=== PATIENT | male | born 1990 | race Caucasian/White ===

== ENCOUNTER 2019-10-12 16:32 | Outpatient (CLI) | payer OTHER, SELFPAY ==
--- NOTE | ~2019-10-12 | XR_ITS ---
XR lumbar spine 2-3V 10/12/2019 16:21 Indication: Low back pain. Procedure: 3 views lumbar spine Comparison: No prior studies for comparison. Findings: Vertebral body heights are maintained. No significant disc narrowing. No fracture or trauma tic malalignment. No evidence for spondylolisthesis. Pedicles intact. Sacral foramen are symmetric. Impression: 1: No significant abnormality of the lumbar spine. Reviewed, dictated and finalized at location A. Impression: 1: No significant abnormality of the lumbar spine.
--- NOTE | ~2019-10-12 | XR_ITS ---
XR thoracic spine 2V 10/12/2019 16:21 Indication: Back pain Procedure: 3 views thoracic spine Comparison: No prior studies for comparison. Findings: No fracture or traumatic malalignment. No paraspinal soft tissue abnormality. Pedicles inta ct. Surrounding osseous structures within normal limits. Impression: 1: No significant abnormality of the thoracic spine. Reviewed, dictated and finalized at location A. Impression: 1: No significant abnormality of the thoracic spine.
[2019-10-12 17:11] LABS: Alanine Aminotransferase 27 U/L (4-50); Albumin Level 4.3 g/dL (3.5-5.1); Alkaline Phosphatase 56 U/L (38-126); Aspartate Amino Transferase 22 U/L (17-59); Bilirubin,Total 0.2 mg/dL (0.2-1.3)
[2019-10-12 17:41] LABS: Thyroid Stimulating Hormone 0.775 uIU/mL (0.465-4.680)
== END 2019-10-12 16:33 | disposition home or self-care (01) ==
PROVIDERS: PCP Internal Medicine; Visit Provider Internal Medicine
DX: R74.0 Nonspecific elevation of levels of transaminase and lactic acid dehydrogenase [LDH] (principal); G89.29 Other chronic pain; M54.9 Dorsalgia, unspecified
CPT/HCPCS: 36415; 72070; 72100; 80076; 84443

== ENCOUNTER 2019-12-25 09:16 | Emergency (ER) | payer OTHER, SELFPAY ==
[2019-12-25 09:28] VITALS: BP 131/61; PULSE 73; RESP 14; TEMP 36.6; O2SAT 100
--- NOTE | 2019-12-25 10:37 | ED.ABDPAIN ---
HPI - Abdominal Pain General Chief Complaint: Abdominal Pain Stated Complaint: lower abdo pain Time Seen by Provider: 12/25/19 10:14 Source: patient and RN notes reviewed Mode of arrival: ambulatory Limitations: no limitations History of Present Illness HPI narrative: Patient presents today complaining of 3-day history of left lower quadrant abdominal pain that has been worsening since onset. Denies fever, nausea, vomiting, diarrhea. Denies any urinary symptoms. Denies radiation of the pain. Bowel movements have been normal. Eating and drinking normally. Currently rates his pain 8/10 and has been taking Tylenol without relief. Pain does increase with movement. No history of abdominal surgeries. No history of diverticulitis or diverticulosis. No history of kidney stones. MD elicited complaint: abdominal pain Related Data Allergies Allergy/AdvReac Type Severity Reaction Status Date / Time No Known Allergies Allergy Verified 12/25/19 09:52 Review of Systems Review of Systems: Narrative: CONSTITUTIONAL: Denies body aches, fever, chills, or sweats. EYES: Denies visual changes, redness, or discharge. ENT: Denies rhinorrhea, congestion, sore throat, or otalgia. CARDIOVASCULAR: Denies chest pain, palpitations, or edema. RESPIRATORY: Denies cough or dyspnea. GASTROINTESTINAL: Denies nausea, vomiting, or diarrhea. + Left lower quadrant abdominal pain GENITOURINARY: Denies dysuria or hematuria. SKIN: Denies rash, itching, or wounds. MUSCULOSKELETAL: Denies back pain, joint pain, or myalgia. NEUROLOGIC: Denies headache, numbness, tingling, or weakness. PSYCH: Denies depression or anxiety. FORMERLY [facility] Past Medical History Medical History (Updated 12/25/19 @ 10:44 by Teresita Dooley, [facility], ) Back spasm Depression Surgical History Surgical History (Updated 05/28/19 @ 09:44 by Jeanie Betts) H/O shoulder replacement 2013 Status post labral repair of shoulder Family History Family History (Updated 05/28/19 @ 09:46 by Jeanie Betts) Father Hyperlipemia Grandparent Hypertension Hyperlipemia H/O heart bypass surgery Sibling Hyperlipemia Social History Social History (Updated 05/28/19 @ 09:47 by Jeanie Betts) Smoking status: Never smoker Alcohol intake: current Substance use: never Comments At time of signature, I have reviewed and agree with nursing past medical, surgical, social and family history unless otherwise noted. Please see nursing chart for further information. There is no relevant family history pertinent to the presenting complaint Exam Narrative: Exam Narrative: GENERAL: Well-appearing, well-nourished, and in no acute distress. HEAD: Normocephalic, atraumatic. EYES: EOMI. No redness or drainage. Conjunctivae normal. ENT: Mucous membranes pink and moist. NECK: Normal AROM. Supple. No lymphadenopathy. CHEST: No respiratory distress. Clear to auscultation. HEART: Regular rate and rhythm. No murmur appreciated. Normal peripheral pulses. ABDOMEN: Soft,nondistended, normal active bowel sounds.+ Tenderness to LLQ, rebound to left suprapubic area. MUSCULOSKELETAL: No bony tenderness. EXTREMITIES: Normal range of motion. No edema. SKIN: Warm, dry, no rash. Capillary refill normal. Normal skin turgor. NEURO: No focal deficits. Alert and oriented x3. Gait steady. PSYCH: Normal affect. No signs of depression or anxiety. Course Vital Signs Vital signs: Vital Signs Temperature 98 F 12/25/19 09:28 Pulse Rate 73 12/25/19 09:28 Respiratory Rate 14 12/25/19 09:28 Blood Pressure 131/61 12/25/19 09:28 Pulse Oximetry 100 12/25/19 09:28 Temperature 98 F 12/25/19 09:28 Pulse Rate 73 12/25/19 09:28 Respiratory Rate 14 12/25/19 09:28 Blood Pressure 131/61 12/25/19 09:28 Pulse Oximetry 100 12/25/19 09:28 Reviewed. Pt has been instructed to follow up with his PCP regarding his elevated blood pressure today. Transfer Transfered to: [facility]
--- NOTE | 2019-12-25 10:43 | PC.NURSE ---
NO UC ORDERED PER PROVIDER
== END 2019-12-25 10:45 | disposition short-term general hospital (02) ==
PROVIDERS: Emergency Provider Nurse Practitioner; PCP Internal Medicine
DX: R10.32 Left lower quadrant pain (principal); F32.9 Major depressive disorder, single episode, unspecified; Z96.619 Presence of unspecified artificial shoulder joint
CPT/HCPCS: 81003; 99212; G0463

== ENCOUNTER 2019-12-25 11:30 | Emergency (ER) | payer OTHER, SELFPAY ==
--- NOTE | ~2019-12-25 | CT_ITS ---
EXAMINATION: CT abdomen pelvis w con DATE: 12/25/2019 12:59 INDICATION: Left lower quadrant abdominal pain. TECHNIQUE: Computed tomography (CT) of the abdomen and pelvis was performed with 100 mL Omnipaque-350 intravenous contrast. Automated exposure control and iterative reconstruction technique were employe d. The dose-length product was 795.03 mGy-cm. COMPARISON: None FINDINGS: Minimal dependent atelectasis in the bilateral lower lobes. Heart size is normal. No pericardial or p leural effusion. Liver, gallbladder, spleen, pancreas, bilateral adrenal glands and kidneys are kaitlin l. Normal appendix. 1.8 cm thin linear metallic density within the cecum. Bowels are otherwise unrema rkable with no wall thickening or obstruction. Bladder is normal. Small amount of free fluid in the p allison. No abscess or free intraperitoneal gas. No pathologically enlarged abdominal or pelvic lymphad enopathy. Small bone island at the right femoral head. IMPRESSION: 1. 1.8 cm thin linear metallic density in the cecum. 2. Very small amount of free fluid in the pelvis. No abscess or free intraperitoneal gas. Reviewed, dictated and finalized at location A. IMPRESSION: 1. 1.8 cm thin linear metallic density in the cecum. 2. Very small amount of free fluid in the pelvis. No abscess or free intraperit castillo gas.
[2019-12-25 11:36] VITALS: BP 102/68; PULSE 57; RESP 18; TEMP 36.5; O2SAT 99
[2019-12-25 12:33] LABS: Basophils Absolute Auto 0.1 K/mm3 (0.0-0.1); Basophils Percent Auto 0.6 % (0.2-1.2); Eosinophils Absolute Auto 0.3 K/mm3 (0-0.3); Eosinophils Percent Auto 3.3 % (0-4.4); Hematocrit 40.7 % (42.0-52.0); Hemoglobin 13.7 g/dL (14.0-18.0); Immature Granulocyte Absolute 0.02 K/mm3 (0.00-0.031); Immature Granulocyte Percent A 0.2 % (0-0.5); Lymphocytes Absolute Auto 2.18 K/mm3 (0.9-3.2); Lymphocytes Percent Auto 25.5 % (18.3-44.2); Mean Corpuscular HGB Conc 33.7 g/dl (32-36); Mean Corpuscular Hemoglobin 29.3 pg (26-34); Mean Platelet Volume 10.8 fl (7.4-10.4); Monocytes Absolute Auto 0.7 K/mm3 (0.1-0.6); Monocytes Percent Auto 7.6 % (2.6-8.5); Neutrophils Absolute Auto 5.4 K/mm3 (1.3-6.7); Neutrophils Percent Auto 62.8 % (45.5-73.1); Platelet Count Result 236 k/mm3 (150-375); Red Blood Count 4.68 M/mm3 (4.6-6.20); White Blood Count 8.6 K/mm3 (4.5-10.0)
[2019-12-25] MEDS: SODIUM CHLORIDE 0.9% IV 1,000 ML 150 ML IV CONT (12:35)
[2019-12-25 12:37] LABS: Add Urine Microscopic? NO; Appearance Urine Clear (Clear); Bilirubin Urine Negative (Negative); Blood Urine Negative (Negative); Color Urine Straw (Yellow); Glucose Urine UA Negative (Negative); Ketones Urine Negative (Negative); Leukocyte Esterase Ur Negative LEU/UL (Negative); Nitrate Urine Negative (Negative); Protein Urine Negative (Negative); Specific Grav Ur 1.009 (1.001-1.035); Urobilinogen Urine Negative mg/dL (<2.0); WBC Urine 0-3 /hpf
[2019-12-25 12:45] LABS: Alanine Aminotransferase 33 U/L (4-50); Albumin Level 4.5 g/dL (3.5-5.1); Alkaline Phosphatase 49 U/L (38-126); Anion Gap 7 mmol/L (8-16); Aspartate Amino Transferase 20 U/L (17-59); Bilirubin,Total 0.2 mg/dL (0.2-1.3); Blood Urea Nitrogen 14 mg/dL (9-20); Calcium 9.4 mg/dL (8.4-10.2); Carbon Dioxide 27 mmol/L (22-30); Chloride 107 mmol/L (98-107); Estimated CRCL calculation 130 ml/min; Estimated Glomerular Filt Rate > 60; Glucose 98 mg/dL (75-110); Lipase 180 U/L (23-300); Potassium 4.4 mmol/L (3.4-5.0); Sodium 141 mmol/L (137-145)
[2019-12-25 12:59] LABS: Lactic Acid Reflex 0.7 mmol/L (0.7-2.1)
--- NOTE | 2019-12-25 13:55 | ED.ABDPAIN ---
HPI - Abdominal Pain General Chief Complaint: Abdominal Pain Stated Complaint: abdominal pain/sent from urgent care Time Seen by Provider: 12/25/19 12:09 Source: patient Mode of arrival: ambulatory Limitations: no limitations History of Present Illness HPI narrative: 29-year-old with no major medical problems here with complaints of left lower abdominal pain since yesterday. Patient denies any nausea, vomiting. No history of fever or chills. Denies any trauma. MD elicited complaint: abdominal pain Pertinent past history: none Pain Consistency: constant Location: LLQ Severity: moderate Quality: aching Radiation: none Migration to: no migration Exacerbating factors: nothing Relieving factors: nothing Related Data Allergies Allergy/AdvReac Type Severity Reaction Status Date / Time No Known Allergies Allergy Verified 12/25/19 11:38 Review of Systems Review of Systems: All systems reviewed & are unremarkable except as noted in HPI and below Constitutional: Constitutional: Reports no additional constitutional complaints Eyes: Eyes: Reports as per HPI ENT: Reports system reviewed and no additional complaints, except as documented Cardiovascular: Cardiovascular: Reports no additional cardiovascular complaints Respiratory: Respiratory: Reports no additional respiratory complaints Gastrointestinal: Gastrointestinal: Reports as per HPI Musculoskeletal: Musculoskeletal: Reports no additional musculoskeletal complaints Neurologic: Reports system reviewed and no additional complaints, except as documented PMFSH Past Medical History Medical History Back spasm Depression Surgical History Surgical History H/O shoulder replacement 2013 Status post labral repair of shoulder Family History Family History Father Hyperlipemia Grandparent Hypertension Hyperlipemia H/O heart bypass surgery Sibling Hyperlipemia Social History Social History Smoking status: Never smoker Alcohol intake: current Substance use: never Gender identity (if verbalized by the patient): Male Exam Narrative: Exam Narrative: GENERAL: Well-appearing, well-nourished, and in no acute distress. HEAD: Normocephalic, atraumatic. EYES: PERRLA and EOMI. ENT: Nares clear, no rhinorrhea or epistaxis. Mucous membranes moist. NECK: Supple. CHEST: Clear to auscultation. No respiratory distress. HEART: Regular rate and rhythm. No murmur heard. Normal peripheral pulses. ABDOMEN: Soft, mild tenderness in the LLQ, nondistended, normal active bowel sounds. EXTREMITIES: Normal range of motion. No edema. SKIN: Warm, dry, no rash. NEURO: No focal deficits. Alert and oriented x3. PSYCH: Normal mood and affect. Course Vital Signs Vital signs: Vital Signs Temperature 36.5 C 12/25/19 11:36 Pulse Rate 57 L 12/25/19 11:36 Respiratory Rate 18 12/25/19 11:36 Blood Pressure 102/68 12/25/19 11:36 Pulse Oximetry 99 12/25/19 11:36 Temperature 36.5 C 12/25/19 11:36 Pulse Rate 57 L 12/25/19 11:36 Respiratory Rate 18 12/25/19 11:36 Blood Pressure 102/68 12/25/19 11:36 Pulse Oximetry 99 12/25/19 11:36 MDM - Abdominal Pain MDM Narrative Medical decision making narrative: With a given history of left lower quadrant pain will do CBC chemistry and CT of the abdomen to rule out diverticulitis. Differential Diagnosis Differential diagnosis: Likely abdominal pain, constipation, diverticulitis and small bowel obstruction Lab Data Result diagrams: 12/25/19 12:20 12/25/19 12:20 Labs: Lab Results 12/25/19 12/25/19 12/25/19 Range/Units 12:20 12:20 12:22 WBC 8.6 (4.5-10.0) K/mm3 RBC 4.68 (4.6-6.20) M/mm3 Hgb 13.7 L (14.0-18.0) g/dL Hct 40.7 L (42.0-52.0) %
[2019-12-25 14:24] VITALS: BP 132/68; PULSE 80; RESP 18; O2SAT 99
== END 2019-12-25 14:27 | disposition home or self-care (01) ==
PROVIDERS: Emergency Provider Family Medicine; PCP Internal Medicine
DX: K59.00 Constipation, unspecified (principal); Z96.619 Presence of unspecified artificial shoulder joint
CPT/HCPCS: 36415; 74177; 80053; 81003; 83605; 83690; 85025; 96360; 99284; J7030; Q9967

== ENCOUNTER 2020-10-21 10:42 | Outpatient (CLI) | payer OTHER, SELFPAY ==
--- NOTE | ~2020-10-21 | MR_ITS ---
EXAMINATION: MR lumbar spine wo con DATE: 10/21/2020 11:51 INDICATION: Chronic low back pain. TECHNIQUE: Magnetic resonance imaging (MRI) of the lumbar spine was performed without intravenous con trast. Sequences included sagittal T2-weighted FSE, sagittal T2-weighted FS FSE, sagittal T1-weighted FSE, and axial T2-weighted FSE. COMPARISON: Lumbar spine radiographs 10/12/2019 FINDINGS: There is 6 degrees dextrocurvature of lumbar spine. There is mild chronic anterior wedging of T12 and L1 vertebral bodies. There are Schmorl's nodes at multiple levels. There is mildly decreas ed disc at L5-S1. The distal spinal cord signal intensity is normal. The conus medullaris is at L2. T he following disc levels are specifically discussed: L1-L2: The disc does not extend beyond the endplate margin. There is no facet joint osteoarthritis. T here is no neural foraminal stenosis. There is no central canal stenosis. L2-L3: The disc does not extend beyond the endplate margin. There is mild right facet joint osteoarth ritis. There is no neural foraminal stenosis. There is no central canal stenosis. L3-L4: The disc does not extend beyond the endplate margin. There is mild bilateral facet joint osteo arthritis. There is no neural foraminal stenosis. There is no central canal stenosis. L4-L5: The disc does not extend beyond the endplate margin. There is mild bilateral facet joint osteo arthritis. There is no neural foraminal stenosis. There is no central canal stenosis. L5-S1: There is a central protrusion with annular fissure. There is mild bilateral facet joint osteoa rthritis. There is mild bilateral neural foraminal stenosis. There is mild central canal stenosis. IMPRESSION: 1. Mild lumbar spondylosis. Reviewed, dictated and finalized at location A. IMPRESSION: 1. Mild lumbar spondylosis.
== END 2020-10-21 10:43 | disposition home or self-care (01) ==
PROVIDERS: PCP Internal Medicine; Visit Provider Internal Medicine
DX: M47.817 Spondylosis without myelopathy or radiculopathy, lumbosacral region (principal); M48.07 Spinal stenosis, lumbosacral region
CPT/HCPCS: 72148

== ENCOUNTER 2021-08-20 17:42 | Emergency (ER) | payer OTHER, SELFPAY ==
--- NOTE | ~2021-08-20 | XR_ITS ---
EXAM: XR toe 1st RT min 2V DATE: 08/20/2021 18:09 HISTORY: TRIED TO KICK OFF A TIRE 08/20/21. ATTN: RT 1ST TOE . COMPARISON: None available. FINDINGS: Normal mineralization. Predominantly oblique fracture of the right first proximal phalange , with likely mild comminution, with anterior angulation and lateral displacement. Mildly displaced f racture the proximal aspect of the right first distal phalange, seen only in the oblique view. No lyt ic or blastic lesion. Joint spaces are maintained. No erosion or periosteal change. Soft tissues with in normal limits. IMPRESSION: Angulated and displaced mildly comminuted fracture of the right first proximal phalange. Minimally displaced fracture the proximal aspect of the right first distal phalange. Reviewed, dictated and finalized at location K. IMPRESSION: Angulated and displaced mildly comminuted fracture of the right fir st proximal phalange. Minimally displaced fracture the proximal aspect of the r ight first distal phalange.
--- NOTE | 2021-08-20 17:46 | ED.LOWEXIN ---
HPI - Extremity Injury (Lower) General Chief Complaint: Extremity Injury, Lower Stated Complaint: toe inj Time Seen by Provider: 08/20/21 18:05 Source: patient and RN notes reviewed Mode of arrival: ambulatory Limitations: no limitations History of Present Illness HPI Narrative: 30-year-old male presents with concern for injury to the first digit of the right foot. He reports just prior to arrival he kicked a tire causing pain, deformity to the first digit of the right foot. He denies intervention. He reports the area feels slightly numb. Reports decreased range of motion. MD complaint: foot injury Related Data Home Medications Medication Instructions Recorded Confirmed pregabalin 25 mg capsule (Lyrica) 25 mg PO BID PRN Back Pain 12/29/20 08/20/21 baclofen 5 mg tablet 15 mg PO BID 07/04/21 08/20/21 bupropion HCl 300 mg 24 hr tablet, 300 mg PO QAM 08/20/21 08/20/21 extended release Allergies Allergy/AdvReac Type Severity Reaction Status Date / Time No Known Allergies Allergy Verified 08/20/21 17:57 Review of Systems Review of Systems: CONSTITUTIONAL: Denies malaise, chills, sweats, or fever. SKIN: Denies rash or itching, open skin, laceration, abrasion, redness, warmth, swelling. MUSCULOSKELETAL: Reports pain, deformity to the first digit of the right foot NEUROLOGIC: Denies numbness, weakness All systems reviewed & are unremarkable except as noted in HPI and below PMFSH Past Medical History Medical History ADD (attention deficit disorder) Back spasm Depression Low back pain Surgical History Surgical History H/O shoulder replacement 2013 Status post labral repair of shoulder Family History Family History Father Hyperlipemia Grandparent Hypertension Hyperlipemia H/O heart bypass surgery Sibling Hyperlipemia Social History Social History Smoking status: Never smoker Alcohol intake: current Substance use: never Gender identity (if verbalized by the patient): Male Comments At time of signature, agree with nursing past medical, surgical, social and family history. There is no relevant family history pertinent to the presenting complaint Exam Narrative: GENERAL: Well-appearing, well-nourished, and in no acute distress. HEAD: Normocephalic, atraumatic. EYES: PERRLA, conjunctivae clear NECK: Supple. CHEST: Speaks in full sentences. No respiratory distress. HEART: Regular rate and rhythm. Normal and equal peripheral pulses. EXTREMITIES: Digit of right foot has normal sensation, limited range of motion. No edema or ecchymosis. Normal sensation with sensitivity to light touch and pain. General digit tenderness. Deformity noted, toe anteriorly angulated no open wounds, no skin tenting, no devitalized tissue or atrophy, no trophic changes, alignment normal, nearby joints and structures intact. Distal pulses palpable and equal bilaterally, skin warm, dry, pink. Capillary refill less than 3 seconds. SKIN: Warm, dry, no rash. NEURO: Alert and oriented x3. PSYCH: Normal mood and affect Course Course Emergency Course: Patient is aware of diagnosis, understands and agrees to treatment plan. Anticipatory guidance given. Patient agrees to follow-up as directed and is aware of reasons to seek care at the emergency department. Portions of this record may have been created with voice recognition software Level of Care: Express Care Visit Vital Signs Vital signs: Reviewed. MDM - Extremity Injury (Lower) MDM Narrative Medical decision making narrative: Patients injury and pain is consistent with musculoskeletal etiology. No signs of neurological or vascular compromise on exam. Compartments and tissues are soft without signs of compartment syndrome. Pain is felt appropriate f
[2021-08-20 17:48] VITALS: BP 139/80; PULSE 79; RESP 14; TEMP 37.5; O2SAT 98
[2021-08-20 17:58] VITALS: BP 139/80; PULSE 79; RESP 14; TEMP 37.5; O2SAT 98
== END 2021-08-20 18:29 | disposition home or self-care (01) ==
PROVIDERS: Emergency Provider Nurse Practitioner; PCP Internal Medicine
DX: S92.411A Displaced fracture of proximal phalanx of right great toe, initial encounter for closed fracture (principal); W22.8XXA Striking against or struck by other objects, initial encounter; F32.A Depression, unspecified; F98.8 Other specified behavioral and emotional disorders with onset usually occurring in childhood and adolescence
CPT/HCPCS: 73660; 99213; G0463

== ENCOUNTER 2022-04-06 13:09 | Outpatient (CLI) | payer OTHER, SELFPAY ==
[2022-04-06 19:54] LABS: Basophils Absolute Auto 0.1 K/mm3 (0.0-0.1); Basophils Percent Auto 0.7 % (0.2-1.2); Eosinophils Absolute Auto 0.1 K/mm3 (0-0.3); Eosinophils Percent Auto 1.4 % (0-4.4); Hematocrit 44.9 % (42.0-52.0); Hemoglobin 14.6 g/dL (14.0-18.0); Immature Granulocyte Absolute 0.02 K/mm3 (0.00-0.031); Immature Granulocyte Percent A 0.3 % (0-0.5); Lymphocytes Absolute Auto 2.01 K/mm3 (0.9-3.2); Lymphocytes Percent Auto 27.6 % (18.3-44.2); Mean Corpuscular HGB Conc 32.5 g/dl (32-36); Mean Corpuscular Hemoglobin 28.9 pg (26-34); Mean Corpuscular Volume 88.7 fl (80-100); Mean Platelet Volume 10.7 fl (7.4-10.4); Monocytes Absolute Auto 0.8 K/mm3 (0.1-0.6); Monocytes Percent Auto 10.7 % (2.6-8.5); Neutrophils Absolute Auto 4.3 K/mm3 (1.3-6.7); Neutrophils Percent Auto 59.3 % (45.5-73.1); Platelet Count Result 272 k/mm3 (150-375); Red Blood Count 5.06 M/mm3 (4.6-6.20); Red Cell Distribution Width 13.2 % (11.5-14.5); White Blood Count 7.3 K/mm3 (4.5-10.0)
[2022-04-06 20:05] LABS: Alanine Aminotransferase 33 U/L (6-50); Albumin Level 4.8 g/dL (3.5-5.1); Alkaline Phosphatase 68 U/L (38-126); Anion Gap 7 mmol/L (8-16); Aspartate Amino Transferase 36 U/L (17-59); Bilirubin,Total 0.3 mg/dL (0.2-1.3); Blood Urea Nitrogen 11 mg/dL (9-20); Calcium 9.9 mg/dL (8.4-10.2); Carbon Dioxide 30 mmol/L (22-30); Chloride 99 mmol/L (98-107); Cholesterol 170 mg/dL (0-200); Estimated Glomerular Filt Rate > 60; Glucose 89 mg/dL (65-110); HDL Direct 61 mg/dL; Potassium 4.2 mmol/L (3.4-5.0); Sodium 136 mmol/L (137-145); Triglycerides 89 mg/dL (<150)
[2022-04-06 20:16] LABS: LDL Cholesterol Direct 76 mg/dL
[2022-04-08 22:05] LABS: PCP NEGATIVE ng/mL (<25)
[2022-04-16 10:41] LABS: Amphetamines Positive; Barbiturates Negative; Benzodiazepines Negative; Cocaine Metabolites Negative; Marijuana Metabolites Negative
== END 2022-04-06 13:10 | disposition home or self-care (01) ==
LOC: ANHGOSHLAB 13:10
PROVIDERS: PCP Internal Medicine; Visit Provider Nurse Practitioner
DX: Z13.220 Encounter for screening for lipoid disorders (principal); Z13.29 Encounter for screening for other suspected endocrine disorder; Z79.899 Other long term (current) drug therapy
CPT/HCPCS: 36415; 80053; 80061; 80307; 85025

== ENCOUNTER → 2022-10-26 11:39 | Outpatient (CLI) | payer OTHER, SELFPAY ==
--- NOTE | ~2022-10-26 | MR_ITS ---
MRI of the lumbar spine Clinical History: Radiculopathy Technique: Axial T2-weighted images, and sagittal T1-weighted, T2-weighted, and and T2 fat-sat images were acquired. COMPARISON: 10/21/2020 Findings: There is no fracture or subluxation of the lumbar spine. Vertebral bodies maintain normal h eight and alignment. No suspicious bone marrow signal abnormality seen. At L1-L2, L2-L3, L3-L4, L4-L5, there are moderate to advanced facet joint degenerative changes. No di sc bulge or herniation T levels. No spinal canal stenosis or neural foraminal narrowing at these leve ls. At L5-S1, there is degenerative disc narrowing with small disc bulge and tiny annular tear. There is mild facet arthropathy. No central canal stenosis. Probable minimal bilateral neural foraminal narrow ing. Paravertebral soft tissues are unremarkable. Impression: Mild degenerative spondylosis, as above. Reviewed, dictated and finalized at [facility]. Impression: Mild degenerative spondylosis, as above.
== END ==
PROVIDERS: PCP Internal Medicine
DX: M54.16 Radiculopathy, lumbar region (principal); M43.06 Spondylolysis, lumbar region
CPT/HCPCS: 72148

== ENCOUNTER 2023-06-06 11:39 | Outpatient (CLI) | payer OTHER, SELFPAY ==
[2023-06-06 16:46] LABS: Basophils Absolute Auto 0.1 K/mm3 (0.0-0.1); Basophils Percent Auto 0.9 % (0.2-1.2); Eosinophils Absolute Auto 0.2 K/mm3 (0-0.3); Hematocrit 44.4 % (42.0-52.0); Hemoglobin 14.2 g/dL (14.0-18.0); Immature Granulocyte Absolute 0.02 K/mm3 (0.00-0.031); Immature Granulocyte Percent A 0.2 % (0-0.5); Lymphocytes Percent Auto 36.1 % (18.3-44.2); Mean Corpuscular Hemoglobin 27.8 pg (26-34); Mean Corpuscular Volume 86.9 fl (80-100); Mean Platelet Volume 10.2 fl (7.4-10.4); Monocytes Absolute Auto 0.5 K/mm3 (0.1-0.6); Neutrophils Absolute Auto 4.4 K/mm3 (1.3-6.7); Neutrophils Percent Auto 54.8 % (45.5-73.1); Platelet Count Result 341 k/mm3 (150-375); Red Blood Count 5.11 M/mm3 (4.6-6.20); Red Cell Distribution Width 12.7 % (11.5-14.5)
[2023-06-06 17:10] LABS: Alanine Aminotransferase 51 U/L (6-50); Albumin Level 4.5 g/dL (3.5-5.1); Alkaline Phosphatase 55 U/L (38-126); Anion Gap 5 mmol/L (8-16); Aspartate Amino Transferase 46 U/L (17-59); Bilirubin,Total 0.4 mg/dL (0.2-1.3); Blood Urea Nitrogen 12 mg/dL (9-20); Carbon Dioxide 30 mmol/L (22-30); Chloride 106 mmol/L (98-107); Estimated Glomerular Filt Rate > 60; Glucose 95 mg/dL (65-110); Potassium 4.5 mmol/L (3.4-5.0); Sodium 141 mmol/L (137-145)
== END 2023-06-06 11:40 | disposition home or self-care (01) ==
LOC: ANHGOSHLAB 11:41
PROVIDERS: PCP Internal Medicine; Visit Provider Nurse Practitioner
DX: Z13.29 Encounter for screening for other suspected endocrine disorder (principal)
CPT/HCPCS: 36415; 80053; 85025

== ENCOUNTER 2023-08-13 18:33 | Emergency (ER) | payer OTHER, SELFPAY ==
[2023-08-13 18:38] VITALS: BP 134/63; PULSE 130; RESP 20; TEMP 39.2; O2SAT 98
--- NOTE | 2023-08-13 18:50 | ED.URI ---
HPI - URI/Sore Throat General Chief Complaint: Upper Respiratory Infection Stated Complaint: throat Time Seen by Provider: 08/13/23 18:51 Source: patient, RN notes reviewed and old records reviewed Mode of arrival: ambulatory Limitations: no limitations History of Present Illness HPI Narrative: 32-year-old male presents to [facility] complaints of sore throat, body aches, headache, fevers since yesterday. Reports he has been taking Tylenol and ibuprofen for his discomfort reports that it is painful to swallow fevers have been up to 102.6F and took Tylenol 1000mg at 1800 prior to arrival. Fever recheck at 1900 101.1F with patient sweaty.Patient denies any shortness of breath with respirations even and nonlabored with no Tachypnea, SAO2 98% on room air. Patient reports no known ill contact. MD elicited complaint: fever, sore throat and other (body aches headache) Onset (ago): day(s) (day 2 of symptoms) Consistency: constant Pain scale (0-10): 7 Able to tolerate fluids by mouth: Yes Treatments prior to arrival: acetaminophen Related Data Allergies Allergy/AdvReac Type Severity Reaction Status Date / Time No Known Allergies Allergy Verified 08/13/23 18:44 Review of Systems Review of Systems: CONSTITUTIONAL: reports malaise, chills, sweats, or fever EYES: Denies visual changes, redness, or discharge. ENT: Reports rhinorrhea, congestion, sinus pain, no otalgia and positive for sore throat. CARDIOVASCULAR: Denies chest pain, palpitations, or edema. RESPIRATORY: Reports no cough.? Denies dyspnea. GASTROINTESTINAL: Denies abdominal pain, nausea, vomiting, diarrhea SKIN: Denies rash or itching. MUSCULOSKELETAL:Reports myalgia. NEUROLOGIC:Reports headache. All systems reviewed & are unremarkable except as noted in HPI and below PMFSH Past Medical History Medical History ADD (attention deficit disorder) Back spasm Broken toe Summer 2021 Depression Low back pain Surgical History Surgical History H/O shoulder replacement 2012 Previous back surgery Ablation of L1 and L2 Status post labral repair of shoulder Family History Family History Father Hyperlipemia Grandparent Hypertension Hyperlipemia H/O heart bypass surgery Sibling Hyperlipemia Social History Social History Smoking status: Never smoker Alcohol intake: current Substance use: never Lack of Transportation: No Lack of Food: Never True Current Housing: I Have Housing Concerned About Future Housing: No Difficulty Paying Gas/Electric Bills: No Difficulty Paying for Meds: No Currently Unemployed: No Education: Bachelor's Degree Difficulty w/ Childcare or Family Care: No Gender identity (if verbalized by the patient): Male Comments At time of signature, agree with nursing past medical, surgical, social and family history. There is no relevant family history pertinent to the presenting complaint Exam Narrative: GENERAL: Ill-appearing, well-nourished, and in no acute distress.reports fatigue HEAD: Normocephalic EYES: PERRLA, conjunctivae clear ENT: Nares clear, turbinates edematous and erythematous, clear discharge. Mucous membranes moist. TM pearly huerta with dull light reflex bilaterally; no tragal tenderness. Oropharynx erythematous without lesions. Tonsils red enlarged and with white exudate, no drooling, no hoarseness, no trismus, uvula midline. NECK: Supple. lymphadenopathy CHEST: Clear to auscultation, breath sounds equal. No wheezing, rhonchi, rales, or stridor. No respiratory distress, speaks in full sentences.no cough noted SAO2 98% on room air HEART: Regular rate and rhythm. No murmur heard. SKIN: Warm, dry, no rash. NEURO: Alert and oriented x3. PSYCH: Normal m
[2023-08-13 18:54] VITALS: BP 134/63; PULSE 130; RESP 20; TEMP 39.2; O2SAT 98
[2023-08-13 19:30] VITALS: PULSE 110; TEMP 38.4
== END 2023-08-13 19:45 | disposition home or self-care (01) ==
PROVIDERS: Emergency Provider Registered Nurse; PCP Internal Medicine
DX: J03.90 Acute tonsillitis, unspecified (principal); Z20.822 Contact with and (suspected) exposure to COVID-19; F98.8 Other specified behavioral and emotional disorders with onset usually occurring in childhood and adolescence; F32.A Depression, unspecified
CPT/HCPCS: 36416; 86308; 87081; 87426; 87804; 87880; 99213; G0463

== ENCOUNTER 2023-09-10 11:10 | Outpatient (CLI) | payer OTHER, SELFPAY ==
--- NOTE | ~2023-09-10 | MR_ITS ---
MRI of the lumbar spine Clinical History: Radiculopathy Technique: Axial T2-weighted images, and sagittal T1-weighted, T2-weighted, and T2 fat-sat images wer e acquired. COMPARISON: 10/26/2022 Findings: There is no fracture or subluxation of the lumbar spine. Vertebral bodies maintain normal h eight and alignment. No suspicious bone marrow signal abnormality seen. At L1-L2, there is no disc bulge or effusion. There is mild to moderate facet arthropathy. No central canal stenosis or neural foraminal narrowing. At L2-L3, there is no disc bulge or herniation. There is moderate facet arthropathy. No central canal stenosis or neural foraminal narrowing. At L3-L4, there is minimal disc bulge and mild to moderate facet arthropathy. No central canal stenos is or neural foraminal narrowing. At L4-L5, there is disc bulge and moderate facet arthropathy. No central canal stenosis. There is min imal bilateral neural foraminal narrowing. At L5-S1, there is minimal disc bulge and mild to moderate facet arthropathy. No central canal stenos is. There is moderate to advanced left neural foraminal narrowing, and moderate right neural foramina l narrowing. Paravertebral soft tissues are unremarkable. Impression: Bilateral neural foraminal narrowing at L4-L5 and L5-S1, as detailed above. Reviewed, dictated and finalized at [facility]. Impression: Bilateral neural foraminal narrowing at L4-L5 and L5-S1, as detailed above.
== END 2023-09-10 11:11 ==
LOC: GOSHIMG 11:11
PROVIDERS: PCP Internal Medicine
DX: M47.817 Spondylosis without myelopathy or radiculopathy, lumbosacral region (principal)
CPT/HCPCS: 72148

== ENCOUNTER 2024-02-19 12:30 | Outpatient (RCR) | payer OTHER, SELFPAY ==
--- NOTE | 2024-01-13 14:16 | OPREHPOC ---
Outpatient Therapy Plan of Care This is a Multidisciplinary Plan of Care that may contain components documented by all disciplines (PT, OT, and ST.) PT Problem 1 PT Problem #1 Knowledge Deficit PT Goal 1 Goal / Goal Update Pt to be IND with issued HEP Target Visit 10 PT Problem 2 PT Problem #2 Pain PT Goal 1 Goal / Goal Update 1. Pt to report back pain no greater than 3/10 in the last week. 2. Pt to report being able to stand for 1 hour without an increase in pain. Target Visit 8 PT Problem 3 PT Problem #3 Impaired Functional Mobil PT Goal 1 Goal / Goal Update 1. Pt to demonstrate a functional lift and carry with 30lb from ground level without compensations. Target Visit 8
--- NOTE | 2024-01-13 14:16 | PTOPEVAL1 ---
Assessment and note entered by Simone Strong, PT, DPT Evaluation Information Assessment Status Evaluation Diagnosis low back pain ICD-10 Condition Codes (PT) Pain in low back M54.50 Onset 3 years Subjective Information Pt states he has been seeing pain management for the last 2 years. He states imaging shows he has facet arthritis and multiple budging discs. He states he has gotten multiple nerve ablations, he gets them about every 6 months. His most recent procedure was in August and since then he has been getting a lot of muscle spasms, mostly on the R side towards his hip. He states his standing and sitting ability is limited as well as his ability to work out. He states initially he hurt his back as an overuse injury doing lots of golfing and working out. 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 Reported Pain Level Pain Score 0: Self Report Assessment PT Clinical Summary Pt presents to therapy today for his initial evaluation with a diagnosis of low back pain. Today he demonstrates good lumbar mobility and ROM . Upon evaluation he demonstrates asymmetric pelvic postures. He also demonstrates poor sitting posture and movement mechanics likely contributing to pelvic mal alignment. Skilled therapy services are indicated to address the deficits noted above, to limit pain, to improve body mechanics, and to return to prior level of function. Plan of Care Interventions Electrical Stimulation,Gait Training,Hot Pack/Cold Pack,Manual Therapy,Neuro Re-education,Patient/ Caregiver Educati,Therapeutic Activities, Therapeutic Exercise PT Services Indicated Yes Treatment Frequency and 1-2x/wk for 8 visits Duration These treatments will address the objective and functional deficits as defined above. The patient will be advanced safely and appropriately in order for the patient to progress towards his/her prior level of function. Additional exercises will be introduced and as well as a comprehensive home exercise program upon discharge, if needed, ?to ensure carryover of functional gains achieved in the clinic. This treatment plan has been reviewed and agreement upon by the patient.
--- NOTE | 2024-01-30 12:33 | PCPTNOTE ---
Patient canceled due to illness.
--- NOTE | 2024-02-07 07:58 | PCPTNOTE ---
Patient was canceled 02/06/24 due to therapist being out with illness.
--- NOTE | 2024-02-17 12:50 | PCPTNOTE ---
Patient did not show up for scheduled appointment this date.
--- NOTE | 2024-02-19 14:21 | PTOPPROG ---
Assessment and note entered by Simone Strong, PT, DPT Evaluation Information Assessment Status Progress Diagnosis low back pain ICD-10 Condition Codes (PT) Pain in low back M54.50 Onset 3 years Subjective Information Pt reports no pain in his back starting out today. He fells like he has progressed since starting therapy, he states his day to day activities have returned to normal. He states lumbar extension is still painful. Assessment PT Clinical Summary Pt presents to therapy today for his progress report following 5 visits of skilled therapy to treat his diagnosis of low back pain. Today he demonstrates improved awareness of posture and movement mechanics with standing and lifting. His day to day pain has progressed, still has not attempted to return to prior exercise level. Pt instructed to continue HEP and to attempt prior exercise routine. If pt reports no new concerns in 1 month, he will be discharged at that time. Plan of Care Interventions Electrical Stimulation,Gait Training,Hot Pack/Cold Pack,Manual Therapy,Neuro Re-education,Patient/ Caregiver Educati,Therapeutic Activities, Therapeutic Exercise PT Services Indicated Yes Treatment Frequency and follow up if needed Duration These treatments will address the objective and functional deficits as defined above. The patient will be advanced safely and appropriately in order for the patient to progress towards his/her prior level of function. Additional exercises will be introduced and as well as a comprehensive home exercise program upon discharge, if needed, ?to ensure carryover of functional gains achieved in the clinic. This treatment plan has been reviewed and agreement upon by the patient.
--- NOTE | 2024-02-19 14:21 | OPREHPOC ---
Outpatient Therapy Plan of Care This is a Multidisciplinary Plan of Care that may contain components documented by all disciplines (PT, OT, and ST.) PT Problem 1 PT Problem #1 Knowledge Deficit PT Goal 1 Goal / Goal Update Pt to be IND with issued HEP Target Visit 10 Progress Met PT Problem 2 PT Problem #2 Pain PT Goal 1 Goal / Goal Update 1. Pt to report back pain no greater than 3/10 in the last week. 2. Pt to report being able to stand for 1 hour without an increase in pain. Target Visit 8 Progress Met PT Problem 3 PT Problem #3 Impaired Functional Mobil PT Goal 1 Goal / Goal Update 1. Pt to demonstrate a functional lift and carry with 30lb from ground level without compensations. Target Visit 8 Progress Met
--- NOTE | 2024-03-30 14:38 | PTOPDC ---
Assessment and note entered by Simone Strong, PT, DPT Evaluation Information Assessment Status Discharge - Pt Not Present Diagnosis low back pain ICD-10 Condition Codes (PT) Pain in low back M54.50 Onset 3 years Subjective Information Called and spoke with pt to follow up. States he is doing well and does not need any additional therapy. Pt will be discharged at this time. Assessment PT Clinical Summary Pt completed 5 visits of skilled therapy services.
== END 2024-03-30 14:56 | disposition home or self-care (01) ==
LOC: ANHGOSHPT 12:30
PROVIDERS: PCP Internal Medicine; Visit Provider Nurse Practitioner
DX: M54.50 Low back pain, unspecified (principal)
CPT/HCPCS: 97110; 97161; 97530

== ENCOUNTER 2024-03-30 11:15 | Outpatient (CLI) | payer OTHER, SELFPAY ==
--- NOTE | ~2024-03-30 | XR_ITS ---
XR toe 1st LT min 2V Ordering provider: Emily Marie NP History: . Pain in Lt 1st toe . Comparison: None. FINDINGS: BONES: No acute fracture or dislocation. JOINT SPACES: Normal. SOFT TISSUES: Normal. IMPRESSION: No acute osseous abnormality. Reviewed, dictated and finalized at location A. ON PICTURE PROJECTIONIST
== END 2024-03-30 11:16 | disposition home or self-care (01) ==
LOC: GOSHIMG 11:16
PROVIDERS: PCP Internal Medicine; Visit Provider Nurse Practitioner
DX: M79.675 Pain in left toe(s) (principal)
CPT/HCPCS: 73660

== ENCOUNTER 2024-06-18 13:02 | Outpatient (CLI) | payer OTHER, SELFPAY ==
--- OUTSIDE RECORDS SUMMARY | 2024-06-18 13:18 | XMS_ITS | Encounter Summary ---
Author Organization [facility] Healthcare Address [address] [place] [address] Care Team Providers Care Air Compressor Mechanic Name Role Phone Gee Silva DO Primary Care Provider [phone]- [phone] Katlin Casillas MD Unavailable Reason for Visit * Reason Onset Date Comments question 07/31/2022 Encounter Details Date Type Department Care Team (Late st Contact Info) Description 07/31/2022 Telephone [facility] [place] [facility] [address] [facility] [address] [place] [address] Katlin Casillas MD [address] [facility] [address] [place] [address] question Social History Tobacco Use Types Packs/Day Years Used Date Smoking Tobacco: Never AUDIT-C Answer Date Recorded Q1: How often do you have a drink containing alc ohol? 2-3 times a week 11/15/2021 Q2: How many drinks containi ng alcohol do you have on a typical day when you are drinking? 1 or 2 11/15/2021 Q3: How often do you have si x or more drinks on one occasion? Never 11/15/2021 Sex and Gender Information Value Date Recorded Sex Assigned at Not on file Legal Sex Male 11:07 AM CDT Gender Identity Not on file Sexual Orientation Not on file documented as of this encounter Plan of Treatment Not on file documented as of this encounter Goals Goal Patient Goal Type Associated Problems Recent Progress Patient-Stated? Author CCM Chronic Pain Care Plan Chronic Care Management Worsening(09 / 2:48 PM CDT) Joni Armendariz, JUVENTINO Note: Problem: Chronic Pain Goals: 1. Minimize further functional decline 2. Maximize quality of life 3. Control pain Strategies: - Activity/exercise program recommendation - Conservative stepwise pain medicine strategy with multi-disciplinary approach - Recommend healthy lifestyle strategies and compensatory methods as needed CCM Fall Prevention Care Plan Chronic Care Management On track(2023 2:48 PM CDT) Cinthia De La Cruz, JUVENTINO Note: Problem: Falls Goals: 1. Maintain strength and balance as able 2. Prevent falls and fractures 3. Maximize safety of living environment Strategies: - Educate on fall prevention and follow-up as needed - Recommend activity/exercise program - Refer to allied health as needed - Recommend healthy lifestyle strategies and compensatory methods as needed documented as of this encounter Visit Diagnoses Not on filedocumented in this encounter Care Teams Air Compressor Mechanic Relationship Specialty Start Date End Date Gee Silva DO PCP - General Internal Medicine 10/31/20 Katlin Casillas MD Consulting Physician Pain Management 12/08/21 documented as of this encounter
--- OUTSIDE RECORDS SUMMARY | 2024-06-18 13:18 | XMS_ITS | Clinical Summary ---
Author Organization [facility] Address [address] [place] [address] Phone Care Team Providers Care Rigging Up Man Name Role Phone Gee Silva DO Primary Care Provider Allergies No known active allergies Medications ibuprofen (ADVIL) 200 MG PO TABS Take 400 mg by mouth daily. Active predniSONE 10 MG PO TABS Take 2 Tabs by mouth daily. For 2 weeks then 1 tab daily for 2 weeks 60 Tab 1 04/02/2012 Active sulfaSALAzine 500 MG PO TABS Take 2 Tabs by mouth 2 times daily. 360 Tab 0 04/17/2012 Active Active Problems Problem Noted Date Diagnosed Date Encounter for long-term (current) use of medicat ions 04/02/2012 Right shoulder pain 01/17/2012 Synovitis of shoulder 01/17/2012 Neck stiffness 01/17/2012 Low back pain 01/17/2012 Hypermobility arthralgia 01/17/2012 Social History Tobacco Use Types Packs/Day Years Used Date Smoking Tobacco: Never Alcohol Use Standard Drinks/Week Comments Not Asked 0 (1 standard drink = 0.6 oz pur e alcohol) Sex and Gender Information Value Date Recorded Sex Assigned at Not on file Legal Sex Male 3:24 AM TARIFF INSPECTOR Gender Identity Not on file Sexual Orientation Not on file Last Filed Vital Signs Vital Sign Reading Time Taken Comments Blood Pressure 124/80 05/19/2012 1:58 PM TARIFF INSPECTOR Pulse 72 05/19/2012 1:58 PM TARIFF INSPECTOR Temperature - - Respiratory Rate - - Oxygen Saturation - - Inhaled Oxygen Concentration - - Weight 85.3 kg (188 lb) 05/19/2012 1:58 PM TARIFF INSPECTOR Height 180.3 cm (5' 11 ) 01/23/2012 2:12 PM TARIFF INSPECTOR Body Mass Index 26.22 01/23/2012 2:12 PM TARIFF INSPECTOR Plan of Treatment Health Maintenance Due Date Last Done Comments TdaP Immunization 1992 Hepatitis B Immunization (1 of 3 - 19+ 3-dose series) 08/30/2011 Influenza Immunization (#1) 11/17/202311/16, 01/03/2017 SARS-COV-2 Immunization ( season) 2023 04/29/2020, 04/08/2020 Respiratory Syncytial Virus (RSV) Immunization (Adult) (1 - 1-dose 75+ series) 08/30/2067 Hepatitis C Virus (HCV) Screening Completed 01/17/2012 Meningococcal Immunization (ACWY) Aged Out No longer eligible b ased on patient's age to complete this topic Pneumococcal Immunization Combined Aged Out No longer eligible b ased on patient's age to complete this topic Rotavirus Immunization Aged Out No lo nger eligible based on patient's age to complete this topic Procedures Procedure Name Priority Date/Time Associated Diagnosis Comments HEPATITIS C ANTIBODY Routine 01/17/2012 3:10 PM CDT Right shoulder pain Synovitis of shoulder from Last 3 Months or Most Recently Relevant to Health Maintenance Results * HEPATITIS C ANTIBODY (01/17/2012 3:10 PM CDT) hepatitis C antibody NON DETECTED NON DETECTED [facility] Comment:ANTIBODIES TO HCV NO T DETECTED: DOES NOT EXCLUDE EARLY ACUTE HCV INFECTION. Blood specimen (specimen) 01/17/2012 3:10 PM CDT 01/17/2012 6:17 PM CDT us Arcelia Bueno SORTING LIVESTOCK WORKER, FEED MIXER CHEMISTRY ORDERABL ES Final Result [facility] [address] [place] [address] from Last 3 Months or Most Recently Relevant to Health [place] [address] [place] [address] [facility] [employer] [facility] Care Teams Rigging Up Man Relationship Specialty Start Date End Date Gee Silva DO [address] [facility] [place], [place] [id number] PCP - General Internal Medicine 06/01/22
--- OUTSIDE RECORDS SUMMARY | 2024-06-18 13:18 | XMS_ITS | Encounter Summary ---
Author Organization [facility] Healthcare Address [address] [place] [address] Care Team Providers Care Radiological Technician Name Role Phone Gee Silva DO Primary Care Provider [phone]- [phone] Katlin Casillas MD Unavailable [phone] Reason for Visit * Reason Onset Date Comments PT ORDER 07/17/2021 Encounter Details Date Type Department Care Team (Late st Contact Info) Description 07/17/2021 Telephone [facility] Pain [facility] at the [place] [facility] [address] [facility] [address] [place] [address] Katlin Casillas MD [address] [facility] [address] [place], [place] [id number] PT ORDER Social History Tobacco Use Types Packs/Day Years Used Date Smoking Tobacco: Never AUDIT-C Answer Date Recorded Q1: How often do you have a drink containing alc ohol? 2-3 times a week 05/16/2021 Q2: How many drinks containi ng alcohol do you have on a typical day when you are drinking? 1 or 2 05/16/2021 Q3: How often do you have si x or more drinks on one occasion? Weekly 05/16/2021 Sex and Gender Information Value Date Recorded [...] Chronic Pain Care Plan Chronic Care Management Worsening( 2:48 PM CDT) Joni Armendariz, RN Note: Problem: Chronic Pain Goals: 1. Minimize further functional decline 2. Maximize quality of life 3. Control pain Strategies: - Activity/exercise program recommendation - Conservative stepwise pain medicine strategy with multi-disciplinary approach - Recommend healthy lifestyle strategies and compensatory methods as needed documented as of this encounter Visit Diagnoses Not on filedocumented in this encounter Care Teams Radiological Technician Relationship Specialty Start Date End Date Gee Silva DO PCP - General Internal Medicine 10/31/20 Katlin Casillas MD Consulting Physician Pain Management 12/08/21 documented as of this encounter
--- OUTSIDE RECORDS SUMMARY | 2024-06-18 13:18 | XMS_ITS | Referral Summary ---
Author Organization [facility] Address [address] [place] [id number] Care Team Providers Care Bobbin Stripper Name Role Phone Gee Silva DO Primary Care Provider [phone]- [phone] Katlin Casillas MD Unavailable Allergies No known active allergies Medications buPROPion XL (WELLBUTRIN XL) 300 mg 24 hr tablet Take 1 tablet (300 mg total) by mouth every morning 1 Active ibuprofen (ADVIL,MOTRIN) suspension 100 mg/5 mL Take 30 mL (600 mg total) by mouth every 6 (six) hours as needed for pain (600-800) Usually BID Active BinaxNOW COVID-19 Ag Self Test kit as directed 2 Active Adderall XR 20 mg 24 hr capsule Take 1 capsule (20 mg total) by mouth every morning 2 Active traMADoL (ULTRAM) 50 mg tablet Take 1 tablet (50 mg total) by mouth every 8 (eight) hours as needed for pain for up to 7 days 10 tablet 4 Active methylPREDNISol one (MEDROL DOSEPACK) 4 mg Dosepack TAKE 6 TABLETS ON DAY 1 DIRECTED ON PACKAGE AND DECREASE BY 1 TAB EACH DAY FOR A TOTAL OF 6 DAYS 1 packet 4 Active Additional Information Patient not taking.Reported on 12/16/2023 tiZANidine (ZANAFLEX) 4 mg tablet Take 1 tablet (4 mg total) by mouth every 6 (six) hours as needed for muscle spasms 60 tablet 2 4 Active Active Problems Problem Noted Date Diagnosed Date Spondylosis of lumbar region without myelopathy or radiculopathy 10/15/2023 Lumbar radiculopathy 10/24/2022 Right-sided thoracic back pain 12/27/2020 Social History Tobacco Use Types Packs/Day Years Used Date Smoking Tobacco: Never Tobacco Cessation:Counseling Given: Not Answered AUDIT-C Answer Date Recorded Q1: How often [...] Sign Reading Time Taken Comments Blood Pressure 140/97 12/16/2023 2:47 PM CDT Pulse 66 12/16/2023 2:47 PM CDT Temperature 36.9 C (98.5 F) 12/16/2023 2:47 PM CDT Respiratory Rate 16 12/16/2023 2:47 PM CDT Oxygen Saturation 95% 12/16/2023 2:47 PM CDT Inhaled Oxygen Concentration - - Weight 100.2 kg (221 lb) 09/30/2023 9:31 AM CDT Height 180.3 cm (5' 11 ) 09/30/2023 9:31 AM CDT Body Mass Index 30.82 09/30/2023 9:31 AM CDT Plan of Treatment Not on file Goals Goal Patient Goal Type Associated Problems Recent Progress Patient-Stated? Author [facility] Chronic Pain Care Plan Chronic Care Management Worsening( 2:48 PM CDT) No Joni Rodriges, JUVENTINO Note: Problem: Chronic Pain Goals: 1. Minimize further functional decline 2. Maximize quality of life 3. Control pain Strategies: - Activity/exercise program recommendation - Conservative stepwise pain medicine strategy with multi-disciplinary approach - Recommend healthy lifestyle strategies and compensatory methods as needed [facility] Fall Prevention Care Plan Chronic Care Management On track(2023 2:48 PM CDT) No Cinthia Milner, RN Note: Problem: Falls Goals: 1. Maintain strength and balance as able 2. Prevent falls and fractures 3. Maximize safety of living environment Strategies: - Educate on fall prevention and follow-up as needed - Recommend activity/exercise program - Refer to allied health as needed - Recommend healthy lifestyle strategies and compensatory methods as needed Medical Devices Implanted Type Area Human Resources Benefits Administrator Device Identifier Shelf Expiration Date Model / Serial / Lot Other - See Comments-02/15 Implanted:03/2012 (Quantity not on file) Other - see comments Right: Shoulder Description:Titanium humerus head Insurance [facility] [employer] Care Teams Bobbin Stripper Relationship Specialty Start Date End Date Gee Silva DO PCP - General Internal Medicine 10/31/20 Katlin Casillas MD Consulting Physician Pain Management 12/08/21
--- OUTSIDE RECORDS SUMMARY | 2024-06-18 13:18 | XMS_ITS | Clinical Summary ---
Author Organization [facility] Address [address] [place] [id number] Care Team Providers Care Cat Wagon Operator Name Role Phone eGe Silva DO Primary Care Provider [phone]- [phone] Katlin Casillas MD Unavailable Allergies No known [...] radiculopathy 10/24/2022 Right-sided thoracic back pain 12/27/2020 Surgical History Surgery Date Site/Laterality Comments SHOULDER SURGERY Right partial shoulder replacement RADIOFREQUENCY ABLATION Bilateral FLUORO GUIDED ASPIRATION OR INJECTION LARGE JOINT BILATERAL 06/13/2012 Bilateral Medical History Medical History Date Comments Arthritis Depression Muscle pain Low back pain Social History Tobacco Use Types Packs/Day Years [...] on file Sexual Orientation Not on file Obstetrics History Last Filed Vital Signs Vital Sign Reading [...] 09/30/2023 9:31 AM CDT Plan of Treatment Health Maintenance Due Date Last Done Comments Depression Screening 1992 Hepatitis C Screening 1992 DTaP/Tdap/Td Vaccine (1 - Tdap) 08/30/2003 Varicella Vaccines (1 of 2 - 13+ 2-dose series) 2005 Hepatitis B Screening 2010 Regular Well Visit/Exam 18-64 2010 Covid-19 Vaccine (3 - 2023-2 5 season) 2023 04/29/2020, 04/08/2020 Influenza Vaccine (#1) 2023 0, 11/26/2018, 01/03/2017 HPV Vaccines Aged Out No longer eligi ble based on patient's age to complete this topic Pneumococcal vaccine <65 Aged Out No longer eligible based on patient's age to complete this topic Goals Goal Patient Goal Type Associated Problems Recent Progress Patient-Stated? Author [facility] Chronic Pain Care Plan Chronic Care Management Worsening( 2:48 PM CDT) No Joni Rodriges, JUVENTINO Note: Problem: Chronic Pain Goals: 1. Minimize further functional decline 2. Maximize quality of life 3. Control pain Strategies: - Activity/exercise program recommendation - Conservative stepwise pain medicine strategy with multi-disciplinary approach - Recommend healthy lifestyle strategies and compensatory methods as needed [facility] Fall Prevention Care Plan Chronic Care Management On track(2023 2:48 PM CDT) No Cinthia Milner RN Note: Problem: Falls Goals: 1. Maintain strength and balance as able 2. Prevent falls and fractures 3. Maximize safety of living environment Strategies: - Educate on fall prevention and follow-up as needed - Recommend activity/exercise program - Refer to allied health as needed - Recommend healthy lifestyle strategies and compensatory methods as needed Medical Devices Implanted Type Area Podiatric Surgeon Device Identifier Shelf Expiration Date Model / Serial / Lot Other - See Comments-02/15 Implanted:03/2012 (Quantity not on file) Other - see comments Right: Shoulder Description:Titanium humerus [place] [address] [employer] [facility] H[facility] [place] [address] [facility] Care Teams Cat Wagon Operator Relationship Specialty Start Date End Date Gee Silva DO PCP - General Internal Medicine 10/31/20 Katlin Casillas MD Consulting Physician Pain Management 12/08/21
[2024-06-18 19:16] LABS: Basophils Absolute Auto 0.1 K/mm3 (0.0-0.1); Basophils Percent Auto 0.7 % (0.2-1.2); Eosinophils Absolute Auto 0.1 K/mm3 (0-0.3); Eosinophils Percent Auto 1.3 % (0-4.4); Hematocrit 44.5 % (42.0-52.0); Hemoglobin 14.5 g/dL (14.0-18.0); Immature Granulocyte Absolute 0.02 K/mm3 (0.00-0.031); Immature Granulocyte Percent A 0.2 % (0-0.5); Lymphocytes Absolute Auto 2.91 K/mm3 (0.9-3.2); Lymphocytes Percent Auto 34.9 % (18.3-44.2); Mean Corpuscular HGB Conc 32.6 g/dl (32-36); Mean Corpuscular Hemoglobin 28.9 pg (26-34); Mean Corpuscular Volume 88.8 fl (80-100); Mean Platelet Volume 10.9 fl (7.4-10.4); Monocytes Absolute Auto 0.5 K/mm3 (0.1-0.6); Monocytes Percent Auto 6.5 % (2.6-8.5); Neutrophils Absolute Auto 4.7 K/mm3 (1.3-6.7); Neutrophils Percent Auto 56.4 % (45.5-73.1); Platelet Count Result 290 k/mm3 (150-375); Red Blood Count 5.01 M/mm3 (4.6-6.20); Red Cell Distribution Width 13.1 % (11.5-14.5); White Blood Count 8.3 K/mm3 (4.5-10.0)
[2024-06-18 19:17] LABS: Alanine Aminotransferase 37 U/L (6-50); Albumin Level 4.7 g/dL (3.5-5.1); Alkaline Phosphatase 67 U/L (38-126); Anion Gap 10 mmol/L (4-12); Aspartate Amino Transferase 47 U/L (17-59); Bilirubin,Total 0.4 mg/dL (0.2-1.3); Blood Urea Nitrogen 18 mg/dL (9-20); Calcium 9.6 mg/dL (8.4-10.2); Carbon Dioxide 28 mmol/L (22-30); Chloride 100 mmol/L (98-107); Cholesterol 147 mg/dL (0-200); Estimated Glomerular Filt Rate > 60; Glucose 88 mg/dL (65-110); HDL Direct 53 mg/dL; Potassium 4.2 mmol/L (3.4-5.0); Sodium 138 mmol/L (137-145); Triglycerides 74 mg/dL (<150)
[2024-06-18 19:39] LABS: LDL Cholesterol Direct 71 mg/dL
[2024-06-19 21:38] LABS: Amphetamines POSITIVE ng/mL (<500); Barbiturates NEGATIVE ng/mL (<300); Benzodiazepines NEGATIVE ng/mL (<100); Cocaine Metabolite NEGATIVE ng/mL (<150); Marijuana Metabolite POSITIVE ng/mL (<20); Methadone Metabolite NEGATIVE ng/mL (<100); Opiates NEGATIVE ng/mL (<100); Oxidant NEGATIVE mcg/mL (<200); PCP NEGATIVE ng/mL (<25)
== END 2024-06-18 13:03 | disposition home or self-care (01) ==
LOC: ANHGOSHLAB 13:04
PROVIDERS: PCP Nurse Practitioner; Visit Provider Nurse Practitioner
DX: Z13.220 Encounter for screening for lipoid disorders (principal); Z13.29 Encounter for screening for other suspected endocrine disorder; Z79.899 Other long term (current) drug therapy
CPT/HCPCS: 36415; 80053; 80061; 80307; 85025

== ENCOUNTER 2024-10-27 15:30 | Outpatient (RCR) | payer OTHER, SELFPAY ==
--- NOTE | 2024-09-09 15:09 | OPREHPOC ---
Outpatient Therapy Plan of Care This is a Multidisciplinary Plan of Care that may contain components documented by all disciplines (PT, OT, and ST.) PT Problem 1 PT Problem #1 Knowledge Deficit PT Goal 1 Goal / Goal Update 1. Patient to demonstrate independence with HEP for improved self-reliance of symptom management. PT Goal 2 Target Visit 4 PT Problem 2 PT Problem #2 Impaired Functional Mobility PT Goal 1 Goal / Goal Update 1. Patient will decrease their Modified Oswestry score by at least 10 points to indicate significant improvement in functional abilities and quality of life. 2. Patient to report an improvement in R glute radiating symptoms by 50% to increase ability to perform ADLs. Target Visit 8 PT Problem 3 PT Problem #3 Impaired Range of Motion PT Goal 1 Goal / Goal Update 1. Patient to demonstrate an increase of R hip external rotation/internal rotation active range of motion within 5 degrees of L side to improve lower extremity mobility Target Visit 8 PT Problem 4 PT Problem #4 Impaired Strength PT Goal 1 Goal / Goal Update 1. Patient will demonstrate improved strength of the bilateral hip abductors and extensors to 4+/5 on manual muscle testing in order to improve gait stability Target Visit 8
--- NOTE | 2024-09-09 15:09 | PTOPEVAL1 ---
Assessment and note entered by Josias Tovar PT Evaluation Information Assessment Status Evaluation Diagnosis Back pain with RLE ICD-10 Condition Codes (PT) Pain in low back M54.50,Radiculopathy, lumbar region M54.16 Onset chronic Subjective Information Pt states he had lumbar nerve ablation in July. Pt states his symptoms has decreased since nerve ablation but still has increased pain with activity such as walking, quick movements , hiking , and prolonged sitting. 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 Reported Pain Level Pain Score 3,3: Self Report Assessment PT Clinical Summary Patient presents to physical therapy with a primary issue of chronic lower back and R buttock pain. Pt radicular symptoms have improved since nerve ablation but a deep glute pain consistent with piriformis syndrome and increased nerve tension is present on RLE. Patient demonstrates Hip and core weakness, pain, decreased hip mobility, abnormal posture, gait deficit, and decreased flexibility that limit their ability to perform activities of daily living and functional movements. Patient will benefit from skilled physical therapy to address the above listed deficits and return to prior level of function. Home exercise program instructed and written handout provided, exercises tolerated well with no adverse effects to note post-session. Patient was educated on importance of adherence to home exercise program. Patient was also educated on anatomy, prognosis, home modalities, and plan of care. Plan of Care Interventions Electrical Stimulation,Hot Pack/Cold Pack,Manual Therapy,Mechanical Traction,Neuro Re-education, Therapeutic Activities,Therapeutic Exercise,Other PT Services Indicated Yes Treatment Frequency and 2x week 8 visits Duration These treatments will address the objective and functional deficits as defined above. The patient will be advanced safely and appropriately in order for the patient to progress towards his/her prior level of function. Additional exercises will be introduced and as well as a comprehensive home exercise program upon discharge, if needed, ?to ensure carryover of functional gains achieved in the clinic. This treatment plan has been reviewed and agreement upon by the patient.
--- NOTE | 2024-09-24 13:50 | PCPTNOTE ---
Patient called and left a voicemail stating he would not be able to make it therapy this date.
--- NOTE | 2024-09-30 16:03 | PCPTNOTE ---
Patient called to cancel stating he could not get out of work.
--- NOTE | 2024-10-06 16:18 | PTOPPROG ---
Assessment and note entered by Josias Tovar PT Evaluation Information Assessment Status Evaluation Diagnosis Back pain with RLE ICD-10 Condition Codes (PT) Pain in low back M54.50,Radiculopathy, lumbar region M54.16 Onset chronic Subjective Information Pt reports he has been feeling better and feels mostly recovered. He states he had a few flare with the buttock and the R hip stiffness. Pt notes he feels improvement in his ability to tolerate prolonged positions and exercise regularly. Pt notes he would like to finish out his authorized visits and focus on further strengthening. Assessment PT Clinical Summary Patient's condition has improved overall as evidenced by advancements in symptoms, mobility, strength, and overall functional use of the extremity. However, some limitations are still present in hip strength. Pt has 3 visits remaining on current POC and then will be discharge for PT with updated HEP. Plan of Care Interventions Electrical Stimulation,Hot Pack/Cold Pack,Manual Therapy,Mechanical Traction,Neuro Re-education, Therapeutic Activities,Therapeutic Exercise,Other PT Services Indicated Yes Treatment Frequency and Continue current POC for 3 visits Duration These treatments will address the objective and functional deficits as defined above. The patient will be advanced safely and appropriately in order for the patient to progress towards his/her prior level of function. Additional exercises will be introduced and as well as a comprehensive home exercise program upon discharge, if needed, ?to ensure carryover of functional gains achieved in the clinic. This treatment plan has been reviewed and agreement upon by the patient.
--- NOTE | 2024-10-27 16:07 | PTOPDC ---
Assessment and note entered by Josias Tovar PT Evaluation Information Assessment Status Discharge Diagnosis Back pain with RLE ICD-10 Condition Codes (PT) Pain in low back M54.50,Radiculopathy, lumbar region M54.16 Onset chronic Subjective Information Pt states he feels 90% recovered overall. He notes he has shown great improvements in his hip mobility and exercise tolerance. Pt notes he has returned to hiking, exercising and bike riding. Reported Pain Level Pain Score 0,0: Self Report Assessment PT Clinical Summary Patient's low back pain and radicular pain has improved overall as evidenced by advancements in symptoms, mobility, strength, and overall functional use of the extremity. Patient has met therapy goals and is pleased with progress made towards the remaining goals. Patient to discharge from physical therapy this date and continue with updated home exercise program as instructed. Patient to contact physical therapist or primary care provider if questions or concerns arise. Plan of Care PT Services Indicated No
== END 2024-10-28 10:11 | disposition home or self-care (01) ==
LOC: ANHGOSHPT 15:30
PROVIDERS: PCP Nurse Practitioner
DX: M54.6 Pain in thoracic spine (principal); M47.816 Spondylosis without myelopathy or radiculopathy, lumbar region
CPT/HCPCS: 97110; 97112; 97140; 97161